=== PATIENT | male | born 1935 | race Caucasian/White ===

== ENCOUNTER 2023-02-19 09:03 | Inpatient (IN) | payer MEDICARE ==
[2023-02-19 10:42] LABS: Appearance,Urine Clear (Clear); Basophils % (A) 1 %; Bilirubin,Urine Negative (Negative); Blood,Urine Negative (Negative); Color,Urine Colorless; Eosinophils # (A) 0.3 k/uL (0-0.7); Eosinophils % (A) 5 %; Glucose,Urine (UA) Negative (Negative); HCT 37.9 % (39.0-53.0); HGB 12.3 gm/dL (13.0-17.5); Hypochromasia Slight; Ketones,Urine Negative (Negative); Leukocyte Esterase,Urine Negative (Negative); Lymphocytes # (A) 0.6 k/uL (1.0-4.8); Lymphocytes % (A) 11 %; MCH 32.6 pg (25.0-35.0); MCHC 32.5 g/dL (31.0-37.0); MCV 100.3 fL (80.0-100.0); Mean Platelet Volume 8.1; Monocytes # (A) 0.4 k/uL (0-1.0); Monocytes % (A) 8 %; Neutrophils # (A) 3.7 k/uL (1.3-7.7); Neutrophils % (A) 73 %; Nitrite,Urine Negative (Negative); Platelet Count 117 k/uL (150-450); Protein,Urine Negative (Negative); RBC 3.77 m/uL (4.30-5.90); RDW 13.1 % (11.5-15.5); Specific Gravity,Urine 1.013 (1.001-1.035); Urobilinogen,Urine <2.0 mg/dL (<2.0)
--- NOTE | 2023-02-19 10:54 | XR ---
EXAMINATION TYPE: XR chest 2V DATE OF EXAM: 02/19/2023 10:46 AM CLINICAL INDICATION:Male, 87 years old with history of weakness; PHH COMPARISON: None TECHNIQUE: XR chest 2V Frontal and lateral views of the chest. FINDINGS: Lungs/Pleura: No evidence of pneumothorax. Trace left pleural effusion Pulmonary vascularity: Unremarkable. Heart/mediastinum: Cardiomediastinal silhouette is unremarkable. Atherosclerotic calcifications are seen in the aorta. Musculoskeletal: No acute osseous pathology. IMPRESSION: Trace left pleural effusion.
[2023-02-19 10:57] LABS: INR 1.1 (<1.2); Partial Thromboplastin Time 28.1 sec (22.0-30.0); Prothrombin Time 11.6 sec (10.0-12.5)
[2023-02-19 11:24] LABS: ALT 16 U/L (4-49); AST 27 U/L (17-59); African American GFR (CKD) 51 (>60 ml/min/1.73 sqM); Albumin 4.1 g/dL (3.5-5.0); Alkaline Phosphatase 72 U/L (38-126); Anion Gap 7 mmol/L; Blood Urea Nitrogen 38 mg/dL (9-20); Calcium 8.9 mg/dL (8.4-10.2); Carbon Dioxide 37 mmol/L (22-30); Chloride 99 mmol/L (98-107); Glucose 131 mg/dL (74-99); Non-African American GFR(CKD) 44 (>60 ml/min/1.73 sqM); Potassium 4.3 mmol/L (3.5-5.1); Sodium 143 mmol/L (137-145); Total Bilirubin 0.7 mg/dL (0.2-1.3); Total Protein 7.5 g/dL (6.3-8.2)
[2023-02-19 11:33] LABS: NT-Pro-B-Type Natriuretic Pept 3060 pg/mL
--- NOTE | 2023-02-19 11:46 | CT ---
EXAMINATION TYPE: CT brain wo con CT DLP: 1242.4 mGycm, Automated exposure control for dose reduction was used. DATE OF EXAM: 02/19/2023 11:33 AM COMPARISON: None. CLINICAL INDICATION:Male, 87 years old with history of AMS, ams TECHNIQUE: Brain: Axial CT images of the brain were obtained with coronal and sagittal reformats created and rev iewed. Contrast used: None. Oral contrast used: None. FINDINGS: Brain: Extra-axial spaces: No abnormal extra-axial fluid collections. Ventricular system: Prominent but in proportion to degree of parenchymal volume. Cerebral parenchyma: No acute intraparenchymal hemorrhage or mass effect. The waldron-white junction is well differentiated. Scattered hypoattenuating areas are seen within the white matter, most consiste nt with chronic white matter changes. Generalized parenchymal volume loss. Cerebellum: Unremarkable. Mass effect: No evidence of midline shift. Intracranial vasculature: Atherosclerotic calcifications of the intracranial vessels. Soft tissues: Normal. Calvarium/osseous structures: No depressed skull fracture. Paranasal sinuses and mastoid air cells: Mild mucosal thickening in the right maxillary sinus. Visualized orbits: Bilateral aphakia IMPRESSION: No acute intracranial process.
--- NOTE | 2023-02-19 11:58 | ED ---
General Adult HPI - General Chief complaint: Altered Mental Status Stated complaint: AMS Time Seen by Provider: 02/19/23 09:16 Source: EMS, RN notes reviewed Mode of arrival: EMS Limitations: altered mental status - History of Present Illness Initial comments: 87-year-old male presents to the emergency department via EMS with a chief complaint of altered mental status that started this morning. EMS also reports increased agitation and aggression with staff. Patient is alert and oriented 2 at baseline. Patient denies any specific complaints. Denies fever, chills, chest pain, palpitations, shortness of breath. Denies any recent falls. History was obtained by family and EMS - Related Data Home Medications Medication Instructions Recorded Confirmed Acetaminophen [Tylenol 8 Hour] 650 mg PO Q4HR PRN 02/19/23 02/19/23 Albuterol Sulfate [Albuterol 2 puff PO RT-Q4H PRN 02/19/23 02/19/23 Sulfate Hfa] Apixaban [Eliquis] 2.5 mg PO BID 02/19/23 02/19/23 Budesonide/Formoterol Fumarate 2 puff INHALATION RT-BID 02/19/23 02/19/23 [Symbicort 160-4.5 Mcg Inhaler] Cholecalciferol [Vitamin D3 (25 50 mcg PO DAILY 02/19/23 02/19/23 Mcg = 1000 Iu)] Famotidine [Pepcid] 20 mg PO DAILY 02/19/23 02/19/23 Furosemide [Lasix] 20 mg PO BID@0600,1500 02/19/23 02/19/23 Melatonin 10 mg PO HS 02/19/23 02/19/23 Memantine [Namenda] 10 mg PO BID 02/19/23 02/19/23 Metoprolol Succinate (ER) [Toprol 50 mg PO DAILY 02/19/23 02/19/23 Xl] Potassium Chloride ER [K-Dur 10] 10 meq PO DAILY 02/19/23 02/19/23 Pravastatin Sodium [Pravachol] 10 mg PO HS 02/19/23 02/19/23 busPIRone HCl [Buspar] 10 mg PO BID@0600,1300,2100 02/19/23 02/19/23 traMADol HCl [Ultram] 50 mg PO BID 02/19/23 02/19/23 Allergies Allergy/AdvReac Type Severity Reaction Status Date / Time Penicillins Allergy Anaphylaxis Verified 02/19/23 14:25 sulfadiazine Allergy Unknown Verified 02/19/23 14:25 Review of Systems ROS Statement: Those systems with pertinent positive or pertinent negative responses have been documented in the HPI. ROS Other: All systems not noted in ROS Statement are negative. General Exam - General Exam Comments Initial Comments: eGeneral: Alert, in no acute distress Head: atraumatic normocephalic. Eyes PERRL, EOMI intact, mucous membranes moist Respiratory: Lungs clear to auscultation bilaterally Cardiovascular: Heart rate regular rate and Abdominal: Soft without guarding or rebound Extremities: Normal inspection with full range of motion and normal capillary refill, 2+ pedal edema bilaterally Neuroogic: alert and oriented 3, CN II-XII intact, able to ambulate with steady gait Skin: warm dry and intact with normal color Limitations: altered mental status Course Vital Signs 02/19/23 02/19/23 11:38 12:55 Pulse Rate 104 H 103 H Respiratory 18 18 Rate Blood Pressure 145/97 128/76 O2 Sat by Pulse 96 100 Oximetry - Reevaluation(s) Reevaluation #1: 02/19/23 11:45 Patient reevaluated. Patient and we have bedside. They're agreeable with the plan for admission. EKG Findings - EKG Comments: EKG Findings:: I interpreted the following: EKG performed at 10:01 84 beats per minute an atrial fibrillation. * NM interval, QRS interval 134, QT/QTc 323/363 Medical Decision Making - Medical Decision Making Was pt. sent in by a medical professional or institution (Dr. PA, PHARMACOGNOSY TEACHER, urgent care, hospital, or long-term...) When possible be specific @ -[No] Did you speak to anyone other than the patient for history (EMS, parent, family, police, friend...)? What history was obtained from this source @ -EMS, family Did you review nursing and triage notes (agree or disagree)? Why? @ -[I reviewed and agree with nursing and triage notes] Were old charts reviewed (outside hosp., previous admission, EMS record, old EKG, old radiological studies, urgent care reports/EKG's, long-term records)? Report findings @ -[No old charts were reviewed] Differential Diagnosis (chest pain, altered mental status, abdominal pain women, abdominal pain men, vaginal bleeding, weakness, fever, dyspnea, syncope, headache, dizziness, GI bleed, back pain, seizure, CVA, palpatations, mental health, musculoskeletal)? @ -[not applicable] EKG interpreted by me (3pts min.). @ -[As above] X-rays interpreted by me (1pt min.). @ -yes CT interpreted by me (1pt min.). @ -[None done] U/S interpreted by me (1pt. min.). @ -[None done] What testing was considered but not performed or refused? (CT, X-rays, U/S, labs)? Why? @ -[None] What meds were considered but not given or refused? Why? @ -[None] Did you discuss the management of the patient with other professionals (professionals i.e. , PA, PHARMACOGNOSY TEACHER, lab, RT, psych nurse, social work professor, finance clerk, teacher, strategic intelligence officer, special education case manager)? Give summary @ -Case discussed with Dr. Solomon, [facility] who agrees and accepts the patient for [facility] er observation Was smoking cessation discussed for >3mins.? @ -[No] Was critical care preformed (if so, how long)? @ -[No] Were there social determinants of health that impacted care today? How? (Homelessness, low income, unemployed, alcoholism, drug addiction, transportation, low edu. Level, literacy, decrease access to med. care, senior care, rehab)? @ -[No] Was there de-escalation of care discussed even if they declined (Discuss DNR or withdrawal of care, Hospice)? DNR status @ -[No] What co-morbidities impacted this encounter? (DM, HTN, Smoking, COPD, CAD, Cancer, CVA, ARF, Chemo, Hep., AIDS, mental health diagnosis, sleep apnea, morbid obesity)? @ -[None] Was patient admitted / discharged? Hospital course, mention meds given and route, prescriptions, significant lab abnormalities, going to OR and other pertinent info. @ -Admission. 87-year-old male with past medical history significant for atrial fibrillation and dementia presents the emergency department with a ief complaint of altered mental status. Patient reports and physical exam performed. Patient is alert and oriented 2 which is his baseline. Patient's heart rate regular rate and rhythm, lungs clear to auscultation bilaterally abdomen soft and nontender. 2+ pedal edema bilaterally. Patient had laboratory studies which revealed: WBC 5.0, hemoglobin 12.3, coagulation studies unremarkable sodium, 143 potassium 4.3 BUN 38, creatinine 1.43 lactic acid 1.0 ammonia less than 9 troponin negative. BNP 3000 Urinalysis and Covid and influenza are negative. I interpreted the following: Chest x-ray reveals trace pleural effusion. It is my decision to admit the patient for further observation. Patient given IV Lasix. Case is discussed with holli Morgan who agrees and accepts the patient for further observation. Case is discussed with Dr. Gonzalez, the attending who agrees with plan of care Undiagnosed new problem with uncertain prognosis? @ -[No] Drug Therapy requiring intensive monitoring for toxicity (Heparin, Nitro, Insulin, Cardizem)? @ -[No] Were any procedures done? @ -[No] Diagnosis/symptom? @ -AMS - CHF Acute, or Chronic, or Acute on Chronic? @ -Acute Uncomplicated (without systemic symptoms) or Complicated (systemic symptoms)? @ -Uncomplicated Side effects of treatment? @ -[No] Exacerbation, Progression, or Severe Exacerbation? @ -[No] Poses a threat to life or bodily function? How? (Chest pain, [place], [place], pneumonia, PE, COPD, DKA, ARF, appy, cholecystitis, CVA, Diverticulitis, Homicidal, Suicidal, threat to staff... and all critical care pts) @ -Low likelihood - Lab Data Result diagrams: 02/19/23 09:56 02/19/23 09:56 Lab Results 02/19/23 02/19/23 02/19/23 Range/Units 09:56 09:56 09:56 WBC 5.0 (3.8-10.6) k/uL RBC 3.77 L (4.30-5.90) m/uL Hgb 12.3 L (13.0-17.5) gm/dL Hct 37.9 L (39.0-53.0) % MCV 100.3 H (80.0-100.0) fL MCH 32.6 (25.0-35.0) pg MCHC 32.5 (31.0-37.0) g/dL RDW 13.1 (11.5-15.5) % Plt Count 117 L (150-450) k/uL MPV 8.1 Neutrophils % 73 % Lymphocytes % 11 % Monocytes % 8 % Eosinophils % 5 % Basophils % 1 % Neutrophils # 3.7 (1.3-7.7) k/uL Lymphocytes # 0.6 L (1.0-4.8) k/uL Monocytes # 0.4 (0-1.0) k/uL Eosinophils # 0.3 (0-0.7) k/uL Basophils # 0.0 (0-0.2) k/uL Hypochromasia Slight PT 11.6 (10.0-12.5) sec INR 1.1 (<1.2) APTT 28.1 (22.0-30.0) sec Sodium (137-145) mmol/L Potassium (3.5-5.1) mmol/L Chloride (98-107) mmol/L Carbon Dioxide (22-30) mmol/L Anion Gap mmol/L BUN (9-20) mg/dL Creatinine (0.66-1.25) mg/dL Est GFR (CKD-EPI)AfAm (>60 ml/min/1.73 sqM) Est GFR (CKD-EPI)NonAf (>60 ml/min/1.73 sqM) Glucose (74-99) mg/dL Plasma Lactic Acid Lamont (0.7-2.0) mmol/L Calcium (8.4-10.2) mg/dL Magnesium (1.6-2.3) mg/dL Total Bilirubin (0.2-1.3) mg/dL AST (17-59) U/L ALT (4-49) U/L Alkaline Phosphatase (38-126) U/L Troponin I (0.000-0.034) ng/mL NT-Pro-B Natriuret Pep pg/mL Total Protein (6.3-8.2) g/dL Albumin (3.5-5.0) g/dL Urine Color Colorless Urine Appearance Clear (Clear) Urine pH 5.0 (5.0-8.0) Ur Specific [place] 1.013 (1.001-1.035) Urine Protein Negative (Negative) Urine Glucose (UA) Negative (Negative) Urine Ketones Negative (Negative) Urine Blood Negative (Negative) Urine Nitrite Negative (Negative) Urine Bilirubin Negative (Negative) Urine Urobilinogen <2.0 (<2.0) mg/dL Ur Leukocyte Esterase Negative (Negative) Influenza Type A (PCR) (Not Detectd) Influenza Type B (PCR) (Not Detectd) RSV (PCR) (Not Detectd) SARS-CoV-2 (PCR) (Not Detectd) 02/19/23 02/19/23 02/19/23 Range/Units 09:56 09:56 09:56 WBC (3.8-10.6) k/uL RBC (4.30-5.90) m/uL Hgb (13.0-17.5) gm/dL Hct (39.0-53.0) % MCV (80.0-100.0) fL MCH (25.0-35.0) pg MCHC (31.0-37.0) g/dL RDW (11.5-15.5) % Plt Count (150-450) k/uL MPV Neutrophils % % Lymphocytes % % Monocytes % % Eosinophils % % Basophils % % Neutrophils # (1.3-7.7) k/uL Lymphocytes # (1.0-4.8) k/uL Monocytes # (0-1.0) k/uL Eosinophils # (0-0.7) k/uL Basophils # (0-0.2) k/uL Hypochromasia PT (10.0-12.5) sec INR (<1.2) APTT (22.0-30.0) sec Sodium 143 (137-145) mmol/L Potassium 4.3 (3.5-5.1) mmol/L Chloride 99 (98-107) mmol/L Carbon Dioxide 37 H (22-30) mmol/L Anion Gap 7 mmol/L BUN 38 H (9-20) mg/dL Creatinine 1.43 H (0.66-1.25) mg/dL Est GFR (CKD-EPI)AfAm 51 (>60 ml/min/1.73 sqM) Est GFR (CKD-EPI)NonAf 44 (>60 ml/min/1.73 sqM) Glucose 131 H (74-99) mg/dL Plasma Lactic Acid Lamont 1.0 (0.7-2.0) mmol/L Calcium 8.9 (8.4-10.2) mg/dL Magnesium 2.0 (1.6-2.3) mg/dL Total Bilirubin 0.7 (0.2-1.3) mg/dL AST 27 (17-59) U/L ALT 16 (4-49) U/L Alkaline Phosphatase 72 (38-126) U/L Troponin I <0.012 (0.000-0.034) ng/mL NT-Pro-B Natriuret Pep 3060 pg/mL Total Protein 7.5 (6.3-8.2) g/dL Albumin 4.1 (3.5-5.0) g/dL Urine Color Urine Appearance (Clear) Urine pH (5.0-8.0) Ur Specific [place] (1.001-1.035) Urine Protein (Negative) Urine Glucose (UA) (Negative) Urine Ketones (Negative) Urine Blood (Negative) Urine Nitrite (Negative) Urine Bilirubin (Negative) Urine Urobilinogen (<2.0) mg/dL Ur Leukocyte Esterase (Negative) Influenza Type A (PCR) (Not Detectd) Influenza Type B (PCR) (Not Detectd) RSV (PCR) (Not Detectd) SARS-CoV-2 (PCR) (Not Detectd) 02/19/23 Range/Units 09:56 WBC (3.8-10.6) k/uL RBC (4.30-5.90) m/uL Hgb (13.0-17.5) gm/dL Hct (39.0-53.0) % MCV (80.0-100.0) fL MCH (25.0-35.0) pg MCHC (31.0-37.0) g/dL RDW (11.5-15.5) % Plt Count (150-450) k/uL MPV Neutrophils % % Lymphocytes % % Monocytes % % Eosinophils % % Basophils % % Neutrophils # (1.3-7.7) k/uL Lymphocytes # (1.0-4.8) k/uL Monocytes # (0-1.0) k/uL Eosinophils # (0-0.7) k/uL Basophils # (0-0.2) k/uL Hypochromasia PT (10.0-12.5) sec INR (<1.2) APTT (22.0-30.0) sec Sodium (137-145) mmol/L Potassium (3.5-5.1) mmol/L Chloride (98-107) mmol/L Carbon Dioxide (22-30) mmol/L Anion Gap mmol/L BUN (9-20) mg/dL Creatinine (0.66-1.25) mg/dL Est GFR (CKD-EPI)AfAm (>60 ml/min/1.73 sqM) Est GFR (CKD-EPI)NonAf (>60 ml/min/1.73 sqM) Glucose (74-99) mg/dL Plasma Lactic Acid [place] (0.7-2.0) mmol/L Calcium (8.4-10.2) mg/dL Magnesium (1.6-2.3) mg/dL Total Bilirubin (0.2-1.3) mg/dL AST (17-59) U/L ALT (4-49) U/L Alkaline Phosphatase (38-126) U/L Troponin I (0.000-0.034) ng/mL NT-Pro-B Natriuret Pep pg/mL Total Protein (6.3-8.2) g/dL Albumin (3.5-5.0) g/dL Urine Color Urine Appearance (Clear) Urine pH (5.0-8.0) Ur Specific [place] (1.001-1.035) Urine Protein (Negative) Urine Glucose (UA) (Negative) Urine Ketones (Negative) Urine Blood (Negative) Urine Nitrite (Negative) Urine Bilirubin (Negative) Urine Urobilinogen (<2.0) mg/dL Ur Leukocyte Esterase (Negative) Influenza Type A (PCR) Not Detected (Not Detectd) Influenza Type B (PCR) Not Detected (Not Detectd) RSV (PCR) Not Detected (Not Detectd) SARS-CoV-2 (PCR) Not Detected (Not Detectd) Disposition Clinical Impression: Altered mental status, Congestive heart failure (CHF) Disposition: ADMITTED IP TO THIS HOSP Condition: Fair Time of Disposition: 12:15
[2023-02-19] MEDS ORDERED: FUROSEMIDE 10 MG/ML 2 ML VIAL IV STA (12:14)
[2023-02-19] MEDS ORDERED: NALOXONE 0.4 MG/ML 1 ML VIAL IV PRN ×2 (12:27→14:11)
[2023-02-19] MEDS ORDERED: MAG HYDROX/AL HYDROX/SIMETH 30 ML CUP PO PRN (14:11)
[2023-02-19] MEDS ORDERED: ACETAMINOPHEN TAB 325 MG TAB PO PRN (14:11)
[2023-02-19] MEDS ORDERED: ONDANSETRON 4 MG/2 ML VIAL IVP PRN (14:11)
--- NOTE | 2023-02-19 14:18 | P.HPIM ---
History of Present Illness H&P Date: 02/19/23 History of present illness; patient is a 87-year-old gentleman with past medical significant for dementia, Herbie stahl who is currently resident of [facility] brought in to the ER for increased agitation since this morning. Patient has history of dementia, currently alerted to self and place at baseline. Nursing staff noticed that the patient was more confused and agitated this morning. Nursing staff also checked his oxygenation and found his pulse ox to be low. Patient had no complain of any fever or chills. No: No chest pain or shortness of breath. Patient has swelling of feet. Because of increased agitation, patient was brought to the ER Initial lab work done in the ER showed WBC 5, hemoglobin 12.3, platelet count 117, sodium 140, potassium 4.3, BUN 30, creatinine 1.43, proBNP 3060 UA negative for infection Influenza A- Influenza B not detected COVID-[address] brain no acute intracranial process Chest x-ray done in the ER showed trace left pleural effusion REVIEW OF SYSTEMS: Review of system cannot be obtained as patient is lethargic PHYSICAL EXAMINATION: GENERAL: The patient is lethargic, history of dementia, not in any acute distr ess. Well developed, well nourished. HEENT: Pupils are round and equally reacting to light. EOMI. No scleral icterus. No conjunctival pallor. Normocephalic, atraumatic. No pharyngeal erythema. No thyromegaly. CARDIOVASCULAR: S1 and S2 present. No murmurs, rubs, or gallops. PULMONARY: Chest is clear to auscultation, no wheezing or crackles. ABDOMEN: Soft, nontender, nondistended, normoactive bowel sounds. No palpable organomegaly. MUSCULOSKELETAL: No joint swelling or deformity. EXTREMITIES: No cyanosis, clubbing, 1+ pitting edema lower extremities bilaterally NEUROLOGICAL: Moving all extremities SKIN: No rashes. Assessment and plan Acute metabolic encephalopathy Acute CHF History of Herbie stahl Dementia Monitor vital signs Monitor CBC Monitor CMP Continue telemetry monitoring Strict I's and O's, daily weights Continue IV Lasix 20 mg daily. Ordered 2-D echo Check vitamin B12 and folate levels Cardiology consulted Resume home meds Labs and medication were reviewed.. Continue same treatment. Continue with symptomatic treatment. Resume home medication. Monitor labs and vitals. DVT and GI prophylaxis. Further recommendations as per clinical course of the patient Dictation was produced using Gecko dictation software. please excuse any grammatical, word or spelling errors. Medications and Allergies Allergies Allergy/AdvReac Type Severity Reaction Status Date / Time Penicillins Allergy Anaphylaxis Verified 02/19/23 09:15 sulfadiazine Allergy Unknown Verified 02/19/23 09:15 Physical Exam Vitals: Vital Signs Pulse Resp BP Pulse Ox 02/19/23 12:55 103 H 18 128/76 100 02/19/23 11:38 104 H 18 145/97 96 Intake and Output 02/18/23 02/19/23 02/19/23 22:59 06:59 14:59 Other: Weight 81.647 kg Results CBC & Chem 7: 02/19/23 09:56 02/19/23 09:56 Labs: Abnormal Lab Results - Last 24 Hours (Table) 02/19/23 02/19/23 Range/Units 09:56 09:56 RBC 3.77 L (4.30-5.90) m/uL Hgb 12.3 L (13.0-17.5) gm/dL Hct 37.9 L (39.0-53.0) % MCV 100.3 H (80.0-100.0) fL Plt Count 117 L (150-450) k/uL Lymphocytes # 0.6 L (1.0-4.8) k/uL Carbon Dioxide 37 H (22-30) mmol/L BUN 38 H (9-20) mg/dL Creatinine 1.43 H (0.66-1.25) mg/dL Glucose 131 H (74-99) mg/dL
[2023-02-20 08:57] LABS: Basophils % (A) 1 %; Eosinophils # (A) 0.2 k/uL (0-0.7); Eosinophils % (A) 5 %; HCT 36.5 % (39.0-53.0); HGB 11.7 gm/dL (13.0-17.5); Hypochromasia Slight; Lymphocytes # (A) 0.6 k/uL (1.0-4.8); Lymphocytes % (A) 15 %; MCH 32.1 pg (25.0-35.0); MCHC 32.1 g/dL (31.0-37.0); MCV 100.1 fL (80.0-100.0); Mean Platelet Volume 8.4; Monocytes # (A) 0.4 k/uL (0-1.0); Monocytes % (A) 9 %; Neutrophils # (A) 2.9 k/uL (1.3-7.7); Neutrophils % (A) 67 %; Platelet Count 123 k/uL (150-450); RBC 3.65 m/uL (4.30-5.90); RDW 13.1 % (11.5-15.5); WBC 4.3 k/uL (3.8-10.6)
[2023-02-20 09:12] LABS: ALT 13 U/L (4-49); African American GFR (CKD) 71 (>60 ml/min/1.73 sqM); Albumin 3.6 g/dL (3.5-5.0); Anion Gap 10 mmol/L; Blood Urea Nitrogen 33 mg/dL (9-20); Calcium 8.6 mg/dL (8.4-10.2); Carbon Dioxide 33 mmol/L (22-30); Chloride 99 mmol/L (98-107); Glucose 96 mg/dL (74-99); Non-African American GFR(CKD) 61 (>60 ml/min/1.73 sqM); Sodium 142 mmol/L (137-145); Total Bilirubin 0.8 mg/dL (0.2-1.3); Total Protein 6.6 g/dL (6.3-8.2)
[2023-02-20 09:13] LABS: AST 28 U/L (17-59); Alkaline Phosphatase 68 U/L (38-126); Potassium 4.1 mmol/L (3.5-5.1)
[2023-02-20] MEDS: METOPROLOL SUCCINATE (ER) 25 MG TAB.ER.24H PO SCH (09:28)
[2023-02-20] MEDS: APIXABAN 2.5 MG TABLET PO SCH ×2 (09:28→20:38)
[2023-02-20] MEDS: FUROSEMIDE 10 MG/ML 2 ML VIAL IV SCH (09:29)
--- NOTE | 2023-02-20 09:49 | CONS ---
CONSULTATION HISTORY OF PRESENT ILLNESS: Willian is an 87-year-old gentleman with history of congestive heart failure and atrial fibrillation, who presented to hospital with increased confusion and agitation and hypoxia, due to which, he is brought into the hospital, and I have been consulted because of elevated BNP and congestive heart failure. The patient is currently living at the [facility] and has dementia. At the time of my evaluation, the patient is pleasantly confused, but is not agitated. He has been treated with IV Lasix with some improvement in his symptoms. He does not have shortness of breath or chest pain. EKG shows atrial fibrillation with controlled ventricular rate, and none of his home medications have been reordered and adjusted. I will obtain a 2D echo to evaluate his LV function. EKG shows atrial fibrillation with nonspecific intraventricular conduction delay. Labs show that the hemoglobin is 11.7. Potassium is 4.3, BUN is 38, creatinine is 1.4. Troponin is negative. BNP is 3060. MEDICATIONS AT HOME: Included: 1. Namenda. 2. Symbicort. 3. Pravachol. 4. Lasix. 5. Eliquis. 6. K-Dur. 7. Toprol. 8. Pepcid. 9. Melatonin. 10.Albuterol. ALLERGIES: The patient is allergic to penicillin and sulfadiazine. FAMILY HISTORY: I am unable to obtain from the patient, who is confused. SOCIAL HISTORY: I am unable to obtain from the patient, who is confused. REVIEW OF SYSTEMS: I am unable to obtain from the patient, who is confused. PHYSICAL EXAMINATION: GENERAL: The patient is pleasantly confused. VITAL SIGNS: Heart rate is 80 beats per minute, blood pressure is 110/72, respiratory rate is 18, O2 saturation is 95% on 2 L. NECK: There is no jugular venous distention. Carotid upstroke is diminished. There is no bruit. CHEST: Reveals diminished air entry at the bases without any crackles or rhonchi. HEART: Reveals first and second heart sounds. Irregular rhythm. ABDOMEN: Soft. EXTREMITIES: Did not reveal any edema. Peripheral pulses are felt. LABORATORY DATA: Show that the hemoglobin is 11.7. BUN and creatinine are slightly elevated. BNP is elevated. ASSESSMENT: 1. Acute exacerbation of chronic congestive heart failure. 2. Permanent atrial fibrillation. 3. Confusion. PLAN: I will obtain a 2D echo to evaluate his LV function. Continue the IV Lasix. Supplement the potassium. Continue rest of his medications. MMODL / IJN: [id number] /
[2023-02-20] MEDS ORDERED: ACETAMINOPHEN TAB 325 MG TAB PO PRN (10:23)
[2023-02-20] MEDS ORDERED: ALBUTEROL NEBULIZED 2.5 MG/3 ML INHALATION PRN (10:23)
--- NOTE | 2023-02-20 12:37 | P.PN ---
Subjective Progress Note Date: 02/20/23 patient is a 87-year-old gentleman with past medical significant for dementia, Herbie stahl who is currently resident of [facility] brought in to the ER for increased agitation since this morning. Patient has history of dementia, currently alerted to self and place at baseline. Nursing staff noticed that the patient was more confused and agitated this morning. Nursing staff also checked his oxygenation and found his pulse ox to be low. Patient had no complain of any fever or chills. No: No chest pain or shortness of breath. Patient has swelling of feet. Because of increased agitation, patient was brought to the ER Initial lab work done in the ER showed WBC 5, hemoglobin 12.3, platelet count 117, sodium 140, potassium 4.3, BUN 30, creatinine 1.43, proBNP 3060 UA negative for infection Influenza A- Influenza B not detected COVID-[address] brain no acute intracranial process Chest x-ray done in the ER showed trace left pleural effusion 02/20. Patient seen and examined. Denies any shortness of breath. Has slight swelling of lower extremities. Vital signs stable REVIEW OF SYSTEMS: CONSTITUTIONAL: No fever, no malaise,. CARDIOVASCULAR: No chest pain, no palpitations, no syncope. PULMONARY: No shortness of breath, no cough, GASTROINTESTINAL: No diarrhea, no nausea, no vomiting, no abdominal pain. NEUROLOGICAL: No headaches, no weakness, PHYSICAL EXAMINATION: GENERAL: The patient is alert, history of dementia not in any acute distress. W ell developed, well nourished. HEENT: Pupils are round and equally reacting to light. EOMI. No scleral icterus. No conjunctival pallor. Normocephalic, atraumatic. No pharyngeal erythema. No thyromegaly. CARDIOVASCULAR: S1 and S2 present. No murmurs, rubs, or gallops. PULMONARY: Chest is clear to auscultation, no wheezing or crackles. ABDOMEN: Soft, nontender, nondistended, normoactive bowel sounds. No palpable organomegaly. MUSCULOSKELETAL: No joint swelling or deformity. EXTREMITIES: 1+ pitting edema lower extremities bilaterally NEUROLOGICAL: Gross neurological examination did not reveal any focal deficits. SKIN: No rashes. Assessment and plan Acute metabolic encephalopathy Acute CHF History of Herbie stahl Dementia Monitor vital signs Monitor CBC Monitor CMP Continue telemetry monitoring Strict I's and O's, daily weights Continue IV Lasix 20 mg daily. Resume Eliquis and Toprol Ordered 2-D echo Check vitamin B12 and folate levels Cardiology consulted Resume home meds Labs and medication were reviewed.. Continue same treatment. Continue with symptomatic treatment. Resume home medication. Monitor labs and vitals. DVT and GI prophylaxis. Further recommendations as per clinical course of the patient Dictation was produced using [employer] dictation software. please excuse any grammatical, word or spelling errors. Objective - Vital Signs Vital signs: Vital Signs Temp 98.2 F 02/20/23 09:00 Pulse 97 02/20/23 09:00 Resp 18 02/20/23 09:00 BP 134/85 02/20/23 09:00 Pulse Ox 94 L 02/20/23 09:00 FiO2 Intake & Output 02/19/23 02/20/23 02/20/23 18:59 06:59 18:59 Weight 81.647 kg - Labs CBC & Chem 7: 02/20/23 07:42 02/20/23 07:42 Labs: Abnormal Lab Results - Last 24 Hours (Table) 02/19/23 02/19/23 02/20/23 Range/Units 09:56 09:56 07:42 RBC 3.77 L (4.30-5.90) m/uL Hgb 12.3 L (13.0-17.5) gm/dL Hct 37.9 L (39.0-53.0) % MCV 100.3 H (80.0-100.0) fL Plt Count 117 L (150-450) k/uL Lymphocytes # 0.6 L (1.0-4.8) k/uL Carbon Dioxide 37 H 33 H (22-30) mmol/L BUN 38 H 33 H (9-20) mg/dL Creatinine 1.43 H (0.66-1.25) mg/dL Glucose 131 H (74-99) mg/dL 02/20/23 Range/Units 07:42 RBC 3.65 L (4.30-5.90) m/uL Hgb 11.7 L (13.0-17.5) gm/dL Hct 36.5 L (39.0-53.0) % MCV 100.1 H (80.0-100.0) fL Plt Count 123 L (150-450) k/uL Lymphocytes # 0.6 L (1.0-4.8) k/uL Carbon Dioxide (22-30) mmol/L BUN (9-20) mg/dL Creatinine (0.66-1.25) mg/dL Glucose (74-99) mg/dL
[2023-02-20] MEDS: busPIRone HCl 10 MG TAB PO SCH ×2 (12:55→20:39)
[2023-02-20] MEDS: SYMBICORT 160-4.5 MCG INHALER INHALATION SCH (18:18)
[2023-02-20] MEDS: MEMANTINE 10 MG TAB PO SCH (20:39)
[2023-02-20] MEDS ORDERED: PRAVASTATIN SODIUM 20 MG TAB PO SCH ×2 (21:00)
[2023-02-20] MEDS ORDERED: MELATONIN 5 MG TABLET PO SCH (21:00)
[2023-02-21] MEDS: busPIRone HCl 10 MG TAB PO SCH ×2 (05:51→13:29)
[2023-02-21] MEDS ORDERED: POTASSIUM CHLORIDE ER 10 MEQ TAB.ER.PRT PO SCH (09:00)
[2023-02-21] MEDS ORDERED: CHOLECALCIFEROL 25 MCG (1000 IU) TABLET PO SCH (09:00)
[2023-02-21] MEDS ORDERED: FAMOTIDINE 20 MG TAB PO SCH (09:00)
[2023-02-21] MEDS: SYMBICORT 160-4.5 MCG INHALER INHALATION SCH (09:04)
[2023-02-21] MEDS: FUROSEMIDE 10 MG/ML 2 ML VIAL IV SCH (09:56)
[2023-02-21] MEDS: MEMANTINE 10 MG TAB PO SCH (09:56)
[2023-02-21] MEDS: METOPROLOL SUCCINATE (ER) 25 MG TAB.ER.24H PO SCH (09:56)
[2023-02-21] MEDS: APIXABAN 2.5 MG TABLET PO SCH (09:56)
--- NOTE | 2023-02-21 11:42 | P.PN ---
Subjective Progress Note Date: 02/21/23 History of present illness: This is an 87-year-old male with history of congestive heart failure, atrial f ibrillation, presented to the hospital with confusion and agitation and hypoxia. We have been consulted because of elevated BNP and congestive heart failure. Patient is currently residing at [facility] and has dementia. Patient is pleasantly confused. He has been on IV Lasix with some improvement of his symptoms. No chest pain or shortness of breath noted. EKG atrial fibrillation with controlled ventricular rate and nonspecific intraventricular conduction delay. Today in follow-up on the observation unit. Patient's home cardiac medications have been resumed and he has been maintained on IV Lasix 20 mg daily. Blood pressure 138/78, heart rate in the 70s to 90s, pulse ox 92% on 2 L, afebrile. I&O's do not appear to be accurate. Weight is down half a kilogram. Shortness of breath is improved today. Physical examination: Gen: This is an 87-year-old male. He is resting in bed appears to be comfortable, no acute respiratory distress noted. Patient is pleasantly confused. VS: reviewed HEENT: Head is atraumatic, normocephalic. Pupils equal, round. Sclerae is anicteric. NECK: Supple. No JVD. LUNGS: Diminished at the bases. No intercostal retractions. HEART: Irregular rate and rhythm. No murmur. ABDOMEN: Soft EXTREMITIES: No pedal edema. Assessment: Acute heart failure Permanent atrial fibrillation Plan: Continue patient's home cardiac medications Transition IV Lasix to oral Monitor I&O, daily weights, electrolytes and renal function Obtain 2-D echocardiogram and Doppler study to assess cardiac structure and function Monitor for one more night if possible and plan for discharge tomorrow. However, it is acceptable for patient to be discharged today. Nurse practitioner note has been reviewed, I agree with documented findings and plan of care. Patient was seen and examined. Objective - Vital Signs Vital signs: Vital Signs Temp 98.8 F 02/21/23 07:59 Pulse 91 02/21/23 07:59 Resp 17 02/21/23 07:59 BP 138/78 02/21/23 07:59 Pulse Ox 92 L 02/21/23 07:59 FiO2 Intake & Output 02/20/23 02/21/23 02/21/23 18:59 06:59 18:59 Intake Total 118 180 Output Total 100 Balance 18 180 Weight 81.2 kg Intake: Oral 118 180 Output: Urine 100 Other: Voiding Method Toilet Urinal Diaper # Voids 1 # Bowel Movements 1 - Labs CBC & Chem 7: 02/20/23 07:42 02/20/23 07:42
--- NOTE | 2023-02-21 12:20 | CA ---
Transthoracic Echo Report Name: Willian Russo Age: 87 Gender: M : 1935 Exam Date: 02/20/2023 17:10 Exam Location: [facility] Ht (in): 73 Wt (lb): 180 Ordering Physician: Keyur Solomon MD Attending/Referring Phys: Food Safety Manager Lynsey Ellsworth [facility] Procedure CPT: Indications: dyspnea Cardiac Hx: Technical Quality: Fair Contrast 1: Total Dose (mL): Contrast 2: Total Dose (mL): MEASUREMENTS (Male / Female) Normal Values 2D ECHO LV Diastolic Diameter PLAX 4.3 cm 4.2 - 5.9 / 3.9 - 5.3 cm LV Systolic Diameter PLAX 3.3 cm IVS Diastolic Thickness 1.2 cm 0.6 - 1.0 / 0.6 - 0.9 cm LVPW Diastolic Thickness 1.1 cm 0.6 - 1.0 / 0.6 - 0.9 cm LV Relative Wall Thickness 0.5 LVOT Diameter 2.0 cm M-MODE Aortic Root Diameter MM 3.0 cm AV Cusp Separation MM 0.9 cm DOPPLER AV Peak Velocity 120.5 cm/s AV Peak Gradient 5.8 mmHg AV Mean Velocity 99.1 cm/s AV Mean Gradient 4.1 mmHg AV Velocity Time Integral 20.6 cm LVOT Peak Velocity 81.0 cm/s LVOT Peak Gradient 2.6 mmHg LVOT Velocity Time Integral 10.3 cm LVOT Stroke Volume 32.0 cm??? LVOT Stroke Volume Index 15.5 ml/m??? LVOT Cardiac Index 1401.6 cm???/min???m??? AV Area Cont Eq vti 1.6 cm??? AV Area Cont Eq pk 2.1 cm??? Mitral E Point Velocity 61.4 cm/s MV Deceleration Time 147.9 ms LV E' Lateral Velocity 9.7 cm/s Mitral E to LV E' Lateral Ratio 6.4 LV E' Septal Velocity 8.9 cm/s Mitral E to LV E' Septal Ratio 6.9 TR Peak Velocity 252.7 cm/s TR Peak Gradient 25.5 mmHg Right Atrial Pressure 3.0 mmHg Pulmonary Artery Systolic Pressu 28.5 mmHg Right Ventricular Systolic Press 28.5 mmHg FINDINGS Left Ventricle Mildly increased left ventricular wall thickness. Left ventricular cavity size normal. Low normal left ventricular systolic function with no obvious regional wall motion abnormalities. Left ventricular ejection fraction is estimated at 50-55%. Right Ventricle Right ventricle at upper limits of normal. Right Atrium Severe right atrial dilatation. Left Atrium Normal left atrial size. Mitral Valve Mild thickening/calcification of the posterior mitral valve leaflet. Trace to mild mitral regurgitation. Aortic Valve Aortic valve not well visualized. Aortic valve sclerosis. No aortic regurgitation. Tricuspid Valve Structurally normal tricuspid valve. Mild tricuspid regurgitation. Pulmonic Valve Pulmonic valve not well visualized. Pericardium Minimal pericardial effusion (normal variant). Aorta Normal size aortic root. CONCLUSIONS Normal LV function Enlarged right atrium Previewed by: Dr. Palmer Foote MD (Electronically Signed) Final Date: 21 February 2023 12:19
--- NOTE | 2023-02-21 13:23 | P.DS ---
Providers Date of admission: 02/20/23 11:56 Attending physician: Keyur Solomon MD Consults: 02/19/23 12:27 Consult Physician Routine Consulting Provider: Jose Davalos Consult Reason/Comments: CHF Do you want consulting provider notified?: Yes Primary care physician: Nellie Lynch Hospital Course: Final Diagnosis Altered mental status due to acute metabolic encephalopathy from [facility] Acute kidney injury prerenal Acute CHF, diastolic History of A. fib Dementia Full Code Discharge Disposition Patient is stable for [facility]. Patient is transitioned back to oral lasix 20 mg BID. Patient to follow up BMP and CBC in 2 to 3 days. Recommend to see PCP Dr. Lynch in 1 to 2 days. Hospital Course This is an 87-year-old gentleman with past medical significant for dementia, atrial fibrillation anticoagulated with eliquis who is currently resident [facility] [facility], brought in to the ER for increased agitation. Patient has history of dementia, currently alerted to self and place at baseline. Nursing staff noticed that the patient was more confused and agitated, and found to have low pulse ox. Patient had no complain of any fever or chills. No: No chest pain or shortness of breath. Patient has swelling of feet. Because of increased agitation, patient was brought to the ER Initial lab work done in the ER showed WBC 5, hemoglobin 12.3, platelet count 117, sodium 140, potassium 4.3, BUN 30, creatinine 1.43, proBNP 3060. UA negative for infection. Covid, Influenza and RSV negative. Chest xray showing trace left pleural effusion. Brain CT negative for acute intracranial process. Patient admitted to the hospital with cardiology consultation. Started on IV lasix. Echocardiogram was done showing EF 50-55% with severe right atrial dilation. Patients creatinine improved to 1.09 with lasix and mentation also improved back to baseline. Patient denies any chest pain or shortness of breath. His lungs are clear. Lower extremity edema improved. Hemodynamically he is stable. He will be discharged back to [facility]. Please see medication reconciliation for a list of current medication. Thank you for allowing us to participate in the care of this patient. The impression and plan of care has been dictated by Carey Vilchis, Nurse Practitioner as directed. Dr. Mathieu MD I have performed a history and physical examination and medical decision making of this patient, discussed the same with the dictator, and agree with the dictators assessment and plan as written, documented as a scribe. Based on total visit time, I have performed more than 50% of this visit. Patient Condition at Discharge: Fair Plan - Discharge Summary Discharge Rx Participant: No New Discharge Prescriptions: New Pravastatin Sodium [Pravachol] 10 mg PO HS tab Metoprolol Succinate (ER) [Toprol XL] 25 mg PO DAILY tab Acetaminophen Tab [Tylenol] 650 mg PO Q6HR PRN tab PRN Reason: Mild Pain Or Fever > 100.5 Continue Acetaminophen [Tylenol 8 Hour] 650 mg PO Q4HR PRN PRN Reason: Fever And/ Or Pain Budesonide/Formoterol Fumarate [Symbicort 160-4.5 Mcg Inhaler] 2 puff INHALATION RT-BID Cholecalciferol [Vitamin D3 (25 Mcg = 1000 Iu)] 50 mcg PO DAILY Albuterol Sulfate [Albuterol Sulfate Hfa] 2 puff PO RT-Q4H PRN PRN Reason: Wheezing busPIRone HCl [Buspar] 10 mg PO BID@0600,1300,2100 Memantine [Namenda] 10 mg PO BID Furosemide [Lasix] 20 mg PO BID@0600,1500 Apixaban [Eliquis] 2.5 mg PO BID Potassium Chloride ER [K-Dur 10] 10 meq PO DAILY Melatonin 10 mg PO HS Famotidine [Pepcid] 20 mg PO DAILY Discontinued Metoprolol Succinate (ER) [Toprol Xl] 50 mg PO DAILY traMADol HCl [Ultram] 50 mg PO BID Pravastatin Sodium [Pravachol] 10 mg PO HS Discharge Medication List Acetaminophen [Tylenol 8 Hour] 650 mg PO Q4HR PRN 02/19/23 [History] Albuterol Sulfate [Albuterol Sulfate Hfa] 2 puff PO RT-Q4H PRN 02/19/23 [History] Apixaban [Eliquis] 2.5 mg PO BID 02/19/23 [History] Budesonide/Formoterol Fumarate [Symbicort 160-4.5 Mcg Inhaler] 2 puff INHALATION RT-BID 02/19/23 [History] Cholecalciferol [Vitamin D3 (25 Mcg = 1000 Iu)] 50 mcg PO DAILY 02/19/23 [History] Famotidine [Pepcid] 20 mg PO DAILY 02/19/23 [History] Furosemide [Lasix] 20 mg PO BID@0600,1500 02/19/23 [History] Melatonin 10 mg PO HS 02/19/23 [History] Memantine [Namenda] 10 mg PO BID 02/19/23 [History] Potassium Chloride ER [K-Dur 10] 10 meq PO DAILY 02/19/23 [History] busPIRone HCl [Buspar] 10 mg PO BID@0600,1300,2100 02/19/23 [History] Acetaminophen Tab [Tylenol] 650 mg PO Q6HR PRN tab 02/21/23 [Rx] Metoprolol Succinate (ER) [Toprol XL] 25 mg PO DAILY tab 02/21/23 [Rx] Pravastatin Sodium [Pravachol] 10 mg PO HS tab 02/21/23 [Rx] Follow up Appointment(s)/Referral(s): Nellie Lynch MD [Primary Care Provider] - 1-2 days Palmer Foote MD [STAFF PHYSICIAN] - 1 Week Ambulatory/Diagnostic Orders: Basic Metabolic Panel [LAB.AMB] Time Frame: 3 Days, Location: None Selected Complete Blood Count w/diff [LAB.AMB] Location: None Selected Discharge Disposition: TRANSFER TO SNF/ECF
[2023-02-21 14:39] VITALS: BP 107/72; PULSE 84; RESP 19; TEMP 98.4
[2023-02-21] MEDS ORDERED: FUROSEMIDE 20 MG TAB PO SCH (16:00)
== END 2023-02-21 17:00 | DRG 682 ==
LOC: EC 09:03 → 3SCARD 13:21 → 6NMEDSUR 02-20 09:44 → OBSVTOIN 02-20 11:56 → 6NMEDSUR 02-20 15:15
PROVIDERS: ADMIT Internal Medicine; ATTEND Internal Medicine
DX: N17.9 Acute kidney failure, unspecified (principal); G93.41 Metabolic encephalopathy; I50.31 Acute diastolic (congestive) heart failure; I48.21 Permanent atrial fibrillation; I11.0 Hypertensive heart disease with heart failure; R09.02 Hypoxemia; F03.90 Unspecified dementia, unspecified severity, without behavioral disturbance, psychotic disturbance, mood disturbance, and anxiety; I25.10 Atherosclerotic heart disease of native coronary artery without angina pectoris; I45.9 Conduction disorder, unspecified; Z79.51 Long term (current) use of inhaled steroids; Z79.01 Long term (current) use of anticoagulants; Z79.899 Other long term (current) drug therapy; Z20.822 Contact with and (suspected) exposure to COVID-19
CPT/HCPCS: 36415; 70450; 71046; 80053; 81003; 82140; 82607; 82728; 82747; 83605; 83735; 83880; 84484; 85025; 85610; 85730; 87636; 93005; 93306; 94640; 96374; 96376; 99285